=== PATIENT | female | born 2000 | race Caucasian/White ===

== ENCOUNTER 2020-05-10 14:23 | Emergency (ER) | payer OTHER, SELFPAY ==
[2020-05-10 14:37] VITALS: BP 146/80; PULSE 95; RESP 16; TEMP 37; O2SAT 100
--- NOTE | 2020-05-10 14:56 | ED.GENADULT ---
HPI - General Adult General Chief complaint: Back Pain/Injury Stated complaint: back pain Source: patient Mode of arrival: ambulatory Limitations: no limitations History of Present Illness HPI narrative: Patient presents for evaluation of low back pain with radiation of the right lower extremity. She indicates she is history of L5 disc herniation and underwent surgery in 2015 for this. At that time she was experiencing radicular pain into the left lower extremity. She had mild relief postoperatively and saw a chiropractor for ongoing management of her pain. In January of this year she started to develop pain in the contralateral lower extremity. She cannot identify any precipitating cause or injury. She states pain is constant but varies in severity, currently 7 out of 10 but reaching 9 out of 10 at times. No descriptive quality of the pain. Pain radiates through the right buttock and down the posterior aspect of the right lower extremity. She has numbness in the right foot which is new for her. She denies any saddle anesthesia, bladder/bowel incontinence. She has recently completed 2 prednisone tapers. She indicates she has attempted to call her primary care provider multiple times, upwards of 3 times last week to discuss her pain. She states that her PCP ordered an MRI but this was declined by her insurance company. Her insurance provider indicated that her primary care provider could perform a peer to peer discussion in an attempt to have her MRI approved. For some reason, she has been told by office staff at her primary care provider's office that the nurse practitioner will return her call. However she continues to receive calls from community support associate as opposed to the actual provider. Patient is obviously frustrated with ongoing pain and lack of follow-up. She states she had an x-ray approximately 3 weeks ago that showed no acute process in the lumbar spinal region. She denies any urinary symptoms. LMP 3 weeks ago. Related Data Home Medications Medication Instructions Recorded Confirmed desog-e.estradiol/e.estradiol 1 tablet PO DAILY 05/10/20 05/10/20 [Jyotsna (28)] Allergies Allergy/AdvReac Type Severity Reaction Status Date / Time No Known Allergies Allergy Verified 05/10/20 14:43 Review of Systems Review of Systems: Narrative: CONSTITUTIONAL: Denies fever, chills, or sweats. EYES: Denies visual changes, redness, or discharge. ENT: Denies rhinorrhea, congestion, sore throat, or otalgia. CARDIOVASCULAR: Denies chest pain, palpitations, or edema. RESPIRATORY: Denies cough or dyspnea. GASTROINTESTINAL: Denies abdominal pain, nausea, vomiting, or diarrhea. GENITOURINARY: Denies dysuria or hematuria. SKIN: Denies rash or itching. MUSCULOSKELETAL: Denies joint pain. Reports low back pain with radiation into the right lower extremity NEUROLOGIC: Denies headache,dizziness, or weakness. Reports numbness in the right foot PSYCHIATRIC: Denies anxiety or depression. PMFSH Past Medical History Medical History (Updated 05/10/20 @ 15:06 by SHERRIE Shell, SUZANNE) Herniation of intervertebral disc between L5 and S1 Surgical History Surgical History History of lumbar surgery Family History Family History (Updated 05/10/20 @ 15:02 by SHERRIE Shell, SUZANNE) Mother Chronic low back pain Father No pertinent past medical history Social History Social History Smoking status: Never smoker Alcohol intake: current Alcohol use details: social Substance use: never Living arrangements: with family Gender identity (if verbalized by the patient): Female Spiritual care concerns: No Exam Narrative: Exam Narrative: GENERAL: Well-appearing, well-nourished. Visibly uncomfortable HEAD: Normocephalic, atraumatic. EYES: PERRLA and EOMI. ENT: Nares clear, no rhinorrhea or epistaxis
[2020-05-10] MEDS: methylPREDNISolone SOD SUCC 125 MG VIAL IM (15:06)
== END 2020-05-10 15:24 | disposition home or self-care (01) ==
PROVIDERS: Emergency Provider Nurse Practitioner; PCP Physician Assistant Medical
DX: M54.16 Radiculopathy, lumbar region (principal)
CPT/HCPCS: 81025; 96372; 99203; G0463; J2930

== ENCOUNTER → 2020-05-17 12:15 | Outpatient (CLI) | payer OTHER, SELFPAY ==
--- NOTE | ~2020-05-17 | MR_ITS ---
EXAMINATION: MR lumbar spine wo con DATE: 05/17/2020 13:09 INDICATION: Low back pain. Right-sided radiculopathy. TECHNIQUE: Magnetic resonance imaging (MRI) of the lumbar spine was performed without intravenous con trast. Sequences included sagittal T2-weighted FSE, sagittal T2-weighted FS FSE, sagittal T1-weighted FSE, and axial T2-weighted FSE. COMPARISON: None FINDINGS: Bone alignment is normal. There is mild chronic anterior wedging of T11-L5 vertebral bodies with Schmorl's nodes at most levels. There is mildly decreased disc height at L5-S1. The distal spin al cord signal intensity is normal. The conus medullaris is at L1. The following disc levels are spec ifically discussed: L1-L2: The disc does not extend beyond the endplate margin. There is no facet joint osteoarthritis. T here is no neural foraminal stenosis. There is no central canal stenosis. L2-L3: The disc does not extend beyond the endplate margin. There is mild bilateral facet joint osteo arthritis. There is no neural foraminal stenosis. There is no central canal stenosis. L3-L4: The disc is mildly bulging. There is mild bilateral facet joint osteoarthritis. There is mild bilateral neural foraminal stenosis. There is mild central canal stenosis. L4-L5: There is a left foraminal protrusion. There is mild bilateral facet joint osteoarthritis. Ther e is mild left neural foraminal stenosis. There is no central canal stenosis. L5-S1: The disc is bulging and has an annular fissure. There is mild bilateral facet joint osteoarthr itis. There is mild bilateral neural foraminal stenosis. There is mild central canal stenosis. IMPRESSION: 1. Mild lumbar spondylosis. Reviewed, dictated and finalized at location A. 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 Mild lumbar spondylosis.
== END ==
PROVIDERS: PCP Physician Assistant Medical; Visit Provider Physician Assistant Medical
DX: M47.27 Other spondylosis with radiculopathy, lumbosacral region (principal); M48.07 Spinal stenosis, lumbosacral region
CPT/HCPCS: 72148

== ENCOUNTER 2023-05-17 13:10 | Emergency (ER) | payer OTHER, SELFPAY ==
[2023-05-17 13:20] VITALS: BP 142/84; PULSE 79; RESP 18; TEMP 36.1; O2SAT 100
--- NOTE | 2023-05-17 13:31 | ED.GENADULT ---
HPI - General Adult General Chief complaint: Upper Respiratory Infection Stated complaint: Cough,Sore Throat,Congestion Source: patient, RN notes reviewed and old records reviewed Mode of arrival: ambulatory Limitations: no limitations History of Present Illness HPI narrative: 23-year-old female presents to [facility] with complaints of cough congestion and sore throat this started Saturday. Patient denies shortness of breath, fever, wheezing. Patient taking DayQuil with no relief. Related Data Allergies Allergy/AdvReac Type Severity Reaction Status Date / Time No Known Allergies Allergy Verified 05/17/23 13:14 Review of Systems Constitutional: Constitutional: Reports no additional constitutional complaints, Denies chills, Denies fatigue and Denies fever(s) Eyes: Eyes: Reports no additional eye complaints ENT: Reports as per HPI, Reports nasal congestion, Reports nasal discharge, Reports sinus pressure and Reports sore throat Cardiovascular: Cardiovascular: Reports no additional cardiovascular complaints Respiratory: Respiratory: Reports chest congestion and Reports cough Neurologic: Reports system reviewed and no additional complaints, except as documented PMF Past Medical History Medical History Enlarged tonsils Herniation of intervertebral disc between L5 and S1 Strep throat URI (upper respiratory infection) Surgical History Surgical History History of lumbar surgery Family History Family History Mother Chronic low back pain Father No pertinent past medical history Other Breast cancer Social History Social History Smoking status: Never smoker Alcohol intake: current Alcohol use details: social Substance use: never Lack of Transportation: No Lack of Food: Never True Current Housing: I Have Housing Concerned About Future Housing: No Difficulty Paying Gas/Electric Bills: No Difficulty Paying for Meds: No Currently Unemployed: No Education: Bachelor's Degree Difficulty w/ Childcare or Family Care: No Living arrangements: with family Gender identity (if verbalized by the patient): Female Spiritual care concerns: No Comments At the time of my signature, I reviewed and agree with the nursing past medical, surgical, social, and family history. There is no relevant family history pertinent to the patient complaint. Exam Const: General: cooperative, healthy appearing, no acute distress and well nourished Nutritional Appearance: well nourished Orientation/consciousness: patient oriented x3 Limitations: no limitations HENMT: Head: normal to inspection and normocephalic Ears: external ears normal, TM's normal bilaterally, mastoids normal and Abnormal EAC present Face/Nose/Sinus: normal facial exam Face and sinus: normal facial exam Mouth: Yes Normal oral and palatal mucosa present, Yes oropharynx normal and Yes moist mucous membranes Throat: posterior oropharynx normal, uvula midline, abnormal tonsil bilateral ( patient states scheduled to have tonsillectomy in 1 month) erythema and hypertrophy and no uvular edema Eyes: General: appearance normal, both eyes and all related structures Sclera: sclerae normal Pupils: Equal, round and reactive pupils present Resp: Effort & Inspection: normal respiratory effort, able to speak in complete sentences, no audible wheezes, no cough, no respiratory distress and no retractions Auscultation: clear to auscultation bilaterally, no crackles, no rales, no rhonchi and no wheezes Cardio: Rate: regular rate Rhythm: regular rhythm Skin: General skin exam: normal color and no rashes or lesions noted Neuro: General: patient oriented x3 Cranial nerves: Yes Equal, round and reactive pupils present Psych: Appeara
== END 2023-05-17 13:43 | disposition home or self-care (01) ==
PROVIDERS: Emergency Provider Registered Nurse; PCP Physician Assistant Medical
DX: J03.90 Acute tonsillitis, unspecified (principal); J06.9 Acute upper respiratory infection, unspecified
CPT/HCPCS: 87081; 87880; 99213; G0463

== ENCOUNTER 2023-06-21 00:44 | Day surgery (SDC) | payer OTHER, SELFPAY ==
[2023-06-18 08:19] VITALS: BMI 35.6
--- NOTE | 2023-06-18 08:27 | PC.NURSE ---
Report to the Outpatient Waiting Room, entrance under the green pavilion located off [facility], at time __0800_ on date _06/21/22__. Planned Procedure Time: _1000_. Time changes happen often and if your time is changed the preop area will call you the afternoon before. - You and your visitor will be asked to self-screen and do not enter if you have any COVID symptoms. - A mask is optional within the hospital at this time. Patients may have clear liquids (water, carbonated beverages, clear teas, apple juice) until 3 hours prior to surgery with a maximum of 20 ounces. - No food from midnight until time of surgery - Infants may have breast milk until 4 hours before surgery, infant formula 6 hours prior to surgery. - Children will be allowed to drink immediately following surgery. If applicable, please bring a bottle or sippy cup to assist with drinking. Juice, water, soda, and popsicles are readily available. For infants on formula, please bring formula the day of surgery. Pacifiers are allowed. Take the following medications with a SIP of water the morning of surgery: INHALER / ZOFRAN IF NEEDED DO NOT STOP ANY OF YOUR OTHER PRESCRIPTION MEDICATIONS PRIOR TO SURGERY ?EXCEPT THE FOLLOWING Medications to discontinue per physician NONE Date to take last dose Please no make-up, nail comoran, hairspray, perfume, deodorant, or body powder the day of surgery. No jewelry (including any body piercings) or valuables the day of surgery, leave them at home. Please take a shower or bath the night before, or the morning of, surgery with an antibacterial soap. Wear comfortable, loose fitting clothing. Children are encouraged to wear pajamas. - Jewelry must be removed prior to entering the operating room. Rings and piercings that are not removed may be cut off. - The hospital will not accept responsibility for valuables. - Please leave all valuables, including medications, at home the day of surgery. If you are going home after surgery, a licensed motor coach driver must drive you home. - NO public transportation without another adult if you receive anesthesia. - We recommend that an adult stay with you for 24 hours following discharge. - We also recommend that you do not drive, make important decision, drink alcoholic beverages, or take any drugs that were not prescribed by your health care provider for at least 24 hours after your discharge time. For Pediatric surgeries, we recommend two adults accompany the child home. Follow any additional instructions given to you from your surgeon. If you or anyone in your household have experienced Covid symptoms in the past week, please notify your surgeon or the nurse liaison at the phone number below for possible testing. Telephone instructions given to _PATIENT_and asked if any additional questions and then verbalized understanding. Patient advised to call surgeon office or pre surgery nurse liaison [phone] if any additional questions.
--- NOTE | 2023-06-20 08:26 | PM.IMHP ---
H&P: HPI History of Present Illness Date/Time: 06/20/23 08:26 Chief Complaint: recurrent tonsillitis chronic tonsillitis dysphagia tonsil stones halitosis snoring adenoid hypertrophy Review of Systems Review of Systems: All systems reviewed & are unremarkable except as noted in HPI and below PMFSH Past Medical History Medical History (Updated 06/20/23 @ 08:27 by Italo Botello MD) Enlarged tonsils Herniation of intervertebral disc between L5 and S1 Murmur Strep throat URI (upper respiratory infection) Surgical History Surgical History History of lumbar surgery Family History Family History Mother Chronic low back pain Father No pertinent past medical history Other Breast cancer Social History Social History Smoking status: Never smoker Alcohol intake: current Drinks per week: 1 Alcohol use details: social Substance use: never Lack of Transportation: No Lack of Food: Never True Current Housing: I Have Housing Concerned About Future Housing: No Difficulty Paying Gas/Electric Bills: No Difficulty Paying for Meds: No Currently Unemployed: No Education: Bachelor's Degree Difficulty w/ Childcare or Family Care: No Living arrangements: with family Gender identity (if verbalized by the patient): Female Spiritual care concerns: No Meds Home Medications and Allergies Home Medications Medication Instructions Recorded Confirmed Type ondansetron 4 mg disintegrating 4 mg PO Q8H PRN nausea and 05/17/23 06/19/23 Rx tablet vomiting #20 tabs albuterol sulfate 90 mcg/actuation 1 - 2 inh inhalation Q4-6H PRN 05/21/23 06/19/23 Rx aerosol inhaler shortness of breath or wheezing #8.5 grams desogestrel-e.estradiol 0.15 1 tablet PO HS 06/18/23 06/19/23 History mg-0.02 mg(21)/e.estrad 0.01 mg(5) tablet (Kariva (28)) clindamycin HCl 300 mg capsule 300 mg PO Q8H #21 caps 06/19/23 06/19/23 Rx Allergies Allergy/AdvReac Type Severity Reaction Status Date / Time No Known Allergies Allergy Verified 06/18/23 08:17 Exam Narrative: large tonsils large adenoids chronic appearing tonsils tonsil stones Assessment and Plan Assessment and plan (1) Dysphagia: Code(s): R13.10 - Dysphagia, unspecified Status: Acute Assessment and Plan: plan or excision mucocele risks discussed including bleeding infection recurrence change in cosmesis scar formation need for time off work need for time off school recurrence of mucocele.? Damage to any structure of the clavicle by myself damage to any structure during induction and maintenance of anesthesia including vocal cord paralysis. (2) Tonsillar hypertrophy: Code(s): J35.1 - Hypertrophy of tonsils Status: Acute (3) Recurrent tonsillitis: Code(s): J03.91 - Acute recurrent tonsillitis, unspecified Status: Acute (4) Strep throat: Code(s): J02.0 - Streptococcal pharyngitis Status: Acute (5) Enlarged tonsils: Code(s): J35.1 - Hypertrophy of tonsils Status: Acute (6) Adenoid hypertrophy: Code(s): J35.2 - Hypertrophy of adenoids Status: Acute (7) Snoring: Code(s): R06.83 - Snoring Status: Acute
[2023-06-21] VITALS (13 sets, daily range): BP systolic 131–164; BP diastolic 79–105; PULSE 61–104; RESP 14–20; TEMP 36.1–36.7; O2SAT 97–100
--- NOTE | 2023-06-21 07:18 | WPDHPUPDATE1 ---
History and Physical Update Update Date/Time: 06/21/23 07:18 History and Physical has been reviewed, including an updated exam of the patient. There are NO changes in the patient's condition. Risks, benefits, and alternatives have been discussed and questions answered. Patient agrees to proceed with procedure.
--- NOTE | 2023-06-21 07:34 | WPDHPUPDATE1 ---
History and Physical Update Update Date/Time: 06/21/23 07:34 Procedure will be tonsillectomy and adenoidectomy.
[2023-06-21] MEDS: ACETAMINOPHEN 500 MG TABLET 1000 MG PO (08:33)
[2023-06-21] MEDS: LACTATED RINGERS 1,000 ML 30 ML IV CONT ×3 (08:40→13:42)
--- NOTE | 2023-06-21 09:19 | WPDANESEPPF ---
Anes - Initial Pre Proc Eval Procedure: Operation Date: 06/21/23 10:00 Proposed Procedures p Tonsillectomy And Adenoidectomy - Italo Botello MD Date/Time: 06/21/23 09:19 Surgeon: Italo Botello MD Pre Op Diagnosis: adenoid hypertrophy,chronic tonsillitis Patient Data Age: 23 Gender: F Height: 1.68 m Weight: 102.8 kg Last Vital Signs Temp 36.7 C 06/21/23 08:47 Pulse 83 06/21/23 08:47 Resp 20 06/21/23 08:47 BP 164/103 H 06/21/23 08:47 Pulse Ox 100 06/21/23 08:47 O2 Del Method Room Air 06/21/23 08:47 Allergies Allergy/AdvReac Type Severity Reaction Status Date / Time No Known Allergies Allergy Verified 06/21/23 08:21 Home Medications Medication Instructions Recorded Confirmed Type ondansetron 4 mg disintegrating 4 mg PO Q8H PRN nausea and 05/17/23 06/21/23 Rx tablet vomiting #20 tabs albuterol sulfate 90 mcg/actuation 1 - 2 inh inhalation Q4-6H PRN 05/21/23 06/21/23 Rx aerosol inhaler shortness of breath or wheezing #8.5 grams desogestrel-e.estradiol 0.15 1 tablet PO HS 06/18/23 06/21/23 History mg-0.02 mg(21)/e.estrad 0.01 mg(5) tablet (Kariva (28)) clindamycin HCl 300 mg capsule 300 mg PO Q8H #21 caps 06/19/23 06/19/23 Rx Patient hx anesthesia problems: post op nausea/vomiting Family hx anesthesia problems: none Results Review: All pre-operative results and documents have been reviewed as part of the pre-operative evaluation. [facility] Past Medical History Medical History (Updated 06/20/23 @ 08:27 by Italo Botello MD) Enlarged tonsils Herniation of intervertebral disc between L5 and S1 Murmur Strep throat URI (upper respiratory infection) Surgical History Surgical History History of lumbar surgery Family History Family History Mother Chronic low back pain Father No pertinent past medical history Other Breast cancer Social History Social History Smoking status: Never smoker Alcohol intake: current Drinks per week: 1 Alcohol use details: social Substance use: never Lack of Transportation: No Lack of Food: Never True Current Housing: I Have Housing Concerned About Future Housing: No Difficulty Paying Gas/Electric Bills: No Difficulty Paying for Meds: No Currently Unemployed: No Education: Bachelor's Degree Difficulty w/ Childcare or Family Care: No Living arrangements: with family Gender identity (if verbalized by the patient): Female Spiritual care concerns: No Anes - Eval Final PreProcedure Day of Procedure 06/21/23 09:19 Patient weight: obese Heart: regular rate and rhythm Lungs: clear to auscultation Airway: Mallampati scale class II Neurological: alert and oriented Last oral intake: >/= 8 hours ASA classification: II Emergent: no Anesthetic plan: proceed Anesthesia type and monitoring: general ETT and standard monitoring Results Review: All pre-operative results and documents have been reviewed as part of the pre-operative evaluation. Informed Consent: The patient's anesthetic plan and its attendant risks and benefits were discussed with the patient/family/POA. Questions were solicited and answers provided to the satisfaction of the patient/family/POA.
[2023-06-21] MEDS: SCOPOLAMINE 1 MG PATCH 1 PATCH TRANSDERM (11:32)
[2023-06-21] MEDS: ONDANSETRON INJ 4 MG/2 ML VIAL IV PUSH (11:32)
[2023-06-21] MEDS: diphenhydrAMINE HCl INJ 50 MG/ML VIAL 25 MG IV PUSH (11:41)
--- NOTE | 2023-06-21 11:54 | W.PM.PROC2 ---
Procedure Note - Detailed Date of Procedure 06/21/23 Pre-op Diagnosis adenoid hypertrophy,chronic tonsillitis Post-op Diagnosis Same Procedure Performed tonsillectomy Surgeon Italo Botello MD Anesthesia General Indications see above Findings scarred in purulent tonsils Description of Procedure patient identified consent verified preop. Patient are. Time-out performed. General anesthesia induced endotracheal tube secured. Patient prepped draped position procedure confirmed 2nd time-out performed. McIvor mouth gag inserted tonsils removed bilaterally extracapsular plane using Bovie electrocautery setting of 8. Any bleeders controlled Bovie suction electrocautery setting of 10 bipolar setting of 8. In-between tonsils McIvor mouth gag lowered to allow blood flow return to the tongue. Afterwards red rubber catheter was inserted transnasally soft palate suspended anteriorly adenoids non-existent. Scant bleeding from the right side from the rubber catheter insertion. No active bleeding. McIvor mouth gag was lowered for 30 seconds reopened reveal no further bleeding. This was a by palpable bilateral procedure. Blood loss 2 cc. No complications. I performed all dictated portions of the procedure. Estimated Blood Loss 2 Drains No Packing No Pathology Yes Complications No immediate complications Condition Stable Disposition PACU [facility] Billing Surgery - Charge Forward: Surgery Billing
[2023-06-21] MEDS: fentaNYL CITRATE INJ (*CRX) 100 MCG/2 ML VIAL 25 MCG IV PUSH ×2 (11:55→12:10)
[2023-06-21] MEDS: oxyCODONE (*CRX) 5 MG/5 ML ORAL SOLN IR PO (13:41)
== END 2023-06-21 14:54 | disposition home or self-care (01) ==
PROVIDERS: PCP Physician Assistant Medical; Visit Provider Otolaryngology
PROC: (CPT 42826; principal; 2023-06-21 10:00)
DX: R13.10 Dysphagia, unspecified (principal); J35.03 Chronic tonsillitis and adenoiditis; J03.90 Acute tonsillitis, unspecified; R06.83 Snoring
CPT/HCPCS: 42826; 88302; A9270; J1100; J1200; J2250; J2405; J2704; J3010; J7120

== ENCOUNTER 2024-11-12 17:54 | Emergency (ER) | payer OTHER, SELFPAY ==
--- OUTSIDE RECORDS SUMMARY | 2024-11-12 17:55 | XMS_ITS | Clinical Summary ---
Author Organization [facility] Address [address] [place] [address] Care Team Providers Care Internal Auditor Name Role Phone Brigid Banegas Primary Care Provider [phone] Allergies No known active allergies Medications Kariva, 28, 0.15-0.02 mgx21 /0.01 mg x 5 per tablet TAKE 1 TABLET BY MOUTH EVERY DAY. PLEASE CALL OFFICE FOR APPOINTMENT 0 Active Active Problems Problem Noted Date Diagnosed Date Encounter for post surgical wound check 07/04/19 21 Class 1 obesity in adult 06/14/2020 Chronic pain 06/14/2020 Overview (06/14/2020): Right leg pain Lumbar disc herniation with radiculopathy 2019 Overview (05/27/2020): Added automatically from request for surgery [id number] Surgical History Surgery Date Site/Laterality Comments BACK SURGERY 06/17/2015 - 06/16/2016 L5-S1 microdisectomy Medical History Medical History Date Comments PONV (postoperative nausea a nd vomiting) Resolved withing 1-2 hours Motion sickness Lumbar disc herniation with radiculopathy 05/27/2020 Added automatically from req uest for surgery [id number] Family History Medical History Relation Name Comments Diabetes Other Family history of diabetes mellitus - Relation: Grandparent (Added by TW Conv) Heart attack Paternal Grandfather Valve Replacement Paternal Grandfather Anesthesia problems Neg Hx Relation Name Status Comments Other Paternal Grandfather Social History Tobacco Use Types Packs/Day Years Used Date Smoking Tobacco: Never Smokeless Tobacco: Never Alcohol Use Standard Drinks/Week Comments Yes 0 (1 standard drink = 0.6 oz pur e alcohol) Comments No Sex and Gender Information Value Date Recorded Sex Assigned at Not on file 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 Gender Identity Not on file Sexual Orientation Not on file Obstetrics History Last Filed Vital Signs Vital Sign Reading Time Taken Comments Blood Pressure 167/101 03/11/2022 7:52 PM CDT Pulse 76 03/11/2022 7:52 PM CDT Temperature 37.1 C (98.8 F) 03/11/2022 7:52 PM CDT Respiratory Rate 16 03/11/2022 7:52 PM CDT Oxygen Saturation 98% 03/11/2022 7:52 PM CDT Inhaled Oxygen Concentration - - Weight 90.4 kg (199 lb 4.7 oz) 03/11/2022 7:52 P M CDT Height 167.6 cm (5' 6) 03/11/2022 7:52 PM CDT Body Mass Index 32.17 03/11/2022 7:52 PM CDT Plan of Treatment Health Maintenance Due Date Last Done Comments Cervical Cancer Screening 1998 Depression Screening 1998 Varicella Vaccines (1 of 2 - 13+ 2-dose series) 2011 HPV Vaccines (1 - 3-dose series) 2013 Regular Well Visit/Exam 18-64 2016 DTaP/Tdap/Td Vaccine (2 - Td or Tdap) 01/14/2020 01/13/2010 Influenza Vaccine (Season Ended) 2025 Hepatitis B Screening Completed 01/19/1999 , 1998, 1998 Hepatitis C Screening Completed 02/06/2016 Pneumococcal vaccine <65 Aged Out No longer eligible based on patient's age to complete this topic Procedures Procedure Name Priority Date/Time Associated Diagnosis Comments SERUM HEPATITIS PANEL Routine 02/06/2016 4:15 AM CDT from Last 3 Months or Most Recently Relevant to Health Maintenance Results * Serum Hepatitis panel (02/06/2016 4:15 AM CDT) HCV ab Negative NEG CDR HISTOR ICAL RESULTS Comment: Interpretive Data Positive results should be confirmed by a molecular method. If positive, a second separately collected sample should be submitted for Hepatitis C Virus (HCV) RNA Detection and Quantitation by Real-Time Reverse Receiving Barn Custodian-PCR (RT-PCR). Current interpretive data was last revised on 2016. HBV core ab, IgM Negative NEG CDR HISTORICAL RESULTS Comment: Interpretive Data If test is reported as Equivocal, new sample should be drawn for testing. Current interpretive data was last revised on 2008. HAV ab, IgM Negative NEG CDR HIST ORICAL RESULTS Comment: Interpretive Data If test is reported as Equivocal, new sample should be drawn in two weeks for testing. Current interpretive data was last revised on 2008. HBV surface ag Negative NEG CDR H ISTORICAL RESULTS Serum 02/06/2016 4:15 AM CDT Narrative CDR HISTORICAL RESULTS - 02/07/2016 5:52 AM CDT Expiration Date: LAB Frequency Standing Order? No Client/Account Bill? No Client Account Number and Description: us Historical Provider LAB BLOOD ORDERABLES Smitha fisher Result Performing Organization Address City/State/[facility] Co de Phone Number CDR HISTORICAL RESULTS from Last 3 Months or Most Recently Relevant to Health Maintenance Insurance [facility] CHOICE PLUS [facility] CHOICE PLUS Care Teams Internal Auditor Relationship Specialty Start Date End Date Brigid Banegas PA [address] [place] [id number] PCP - General 06/04/17
--- OUTSIDE RECORDS SUMMARY | 2024-11-12 17:55 | XMS_ITS | Referral Summary ---
Author Organization [facility] Address [address] [place] [address] Care Team Providers Care Railway Signal Electrician Name Role Phone Brigid Banegas Primary Care Provider [phone] Allergies No known active allergies Medications Kariva, [...] (05/27/2020): Added automatically from request for surgery [id number] Social History Tobacco Use Types Packs/Day Years Used Date Smoking Tobacco: Never Smokeless Tobacco: Never Alcohol Use Standard Drinks/Week Comments Yes 0 (1 standard drink = 0.6 oz pur e alcohol) Comments No Sex and Gender Information Value Date Recorded Sex Assigned at Not on file Legal Sex 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 Current interpretive data was last revised [...] Provider LAB BLOOD ORDERABLES Smitha fisher Result CDR HISTORICAL RESULTS from Last 3 Months or Most Recently Relevant to Health Maintenance Insurance [facility] CHOICE PLUS [facility] CHOICE PLUS [facility] CHOICE PLUS Member Subscriber Plan / Payer (Ef fective 2021-Present) Name:Luh Blackwell Relation to Subscriber:Child Name:MARCELASCOOBY Date of :1964 Address: [address] [place] [address] Payer ID:[id number] (NAIC) Type:[facility] HMO/PPO Address: [place] [phone] Care Teams Railway Signal Electrician Relationship Specialty Start Date End Date Brigid Banegas PA [address] [place] [id number] PCP - General 06/04/17
--- OUTSIDE RECORDS SUMMARY | 2024-11-12 17:55 | XMS_ITS | Clinical Summary ---
Author Organization [facility] Address [address] [place] [address] Care Team Providers Care It Help Desk Manager Name Role Phone Unavailable Primary Care Provider Unavailabl e Source Comments [facility],non-owned Affiliates and Associated Physician Practices is amultiple site organization consisting of ambulatory clinics and hospital sitesin [place], [place], [place] and [place]. This disclosure is being madepursuant to the Care Everywhere program and may not contain all information available regarding this patient. Last updated 18.[facility] Allergies No known active allergies Medications * Be aware that medications may not be up to date on this document. Alwaysverify current medications with the patient. No known medications Active Problems Problem Noted Date Diagnosed Date Elevated blood pressure read ing without diagnosis of hypertension 07/17/2014 BMI (body mass index), pediatric, 95-99% for age 0701/11/2011 Immunizations Immunization Administration Dates Next Due DPT 01/11/2003, 0,1998, 9,1998 HEP B VACCINE, PED/ADOL 01/19/1999,1998, HIB BOOSTER 11/28/1999, 9,1998, 9 MENINGOCOCCAL ACWY (MCV4P) VAC IM 07/16/2014, MMR 01/11/2003,04/21/1999 POLIO IPV 01/11/2003,1998,1998 PPD 01/11/2003,04/21/1999 TDAP (7yrs+) 01/13/2010 Family History Medical History Relation Name Comments Hypercholesterolemia Maternal Grandmother Hypercholesterolemia Mother Relation Name Status Comments Maternal Grandmother Mother Social History Tobacco Use Types Packs/Day Years Used Date Smoking Tobacco: Never Smokeless Tobacco: Never Alcohol Use Standard Drinks/Week Comments No 0 (1 standard drink = 0.6 oz pur e alcohol) Comments No Sex and Gender Information Value Date Recorded Sex Assigned at Not on file Legal Sex Female 6:56 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 Gender Identity Not on file Sexual Orientation Not on file Last Filed Vital Signs Vital Sign Reading Time Taken Comments Blood Pressure 134/70 07/16/2014 4:32 PM CERTIFIED MASTER LOCKSMITH manual; after vaccine given Pulse 72 07/16/2014 4:12 PM CERTIFIED MASTER LOCKSMITH Temperature 37 C (98.6 F) 07/16/2014 4:12 PM CERTIFIED MASTER LOCKSMITH Respiratory Rate 18 01/11/2011 2:58 PM CDT Oxygen Saturation - - Inhaled Oxygen Concentration - - Weight 79.5 kg (175 lb 3.2 oz) 07/16/2014 4:12 PM CERTIFIED MASTER LOCKSMITH Height 165.7 cm (5' 5.25) 07/16/2014 4 :12 PM CERTIFIED MASTER LOCKSMITH Body Mass Index 28.93 07/16/2014 4:12 PM CERTIFIED MASTER LOCKSMITH Plan of Treatment Health Maintenance Due Date Last Done Comments PAP SMEAR 1998 HIV SCREENING 2013 HPV VACCINE (1 - 3-dose series) 2013 HEPATITIS C SCREENING 04/11/2016 DTAP/TDAP/TD VACCINES (7 - Td or Tdap) 01/14/2020 01/13/2010, 01/11/2003, 11/28/1999, Additional history exists COVID-19 VACCINE ( season) 2024 DEPRESSION SCREENING 06/17/2024 INFLUENZA VACCINE (Season Ended) 2025 ZOSTER VACCINE (1 of 2) 2048 HEPATITIS B VACCINE Completed 01/19/1999, 1998, 1998 HIB VACCINE Completed 11/28/1999, 12/1998, 1998, Additional history exists MENINGOCOCCAL GROUPS A/C/Y/W VACCINE Completed 07/16/2014, 01/13/2010 MENINGOCOCCAL (Group B) VACCINE SHARED DECISION-MAKING Aged Out No longer eligible based on patient's age to complete this topic PNEUMOCOCCAL VACCINE Aged Out No long er eligible based on patient's age to complete this topic Goals Goal Patient Goal Type Associated Problems Recent Progress Patient-Stated? Author Exercise 3X per week (30 min per time) Exercise On track( 015 4:14 PM CERTIFIED MASTER LOCKSMITH) No Sujata Fam, REYNALDO Note: Caring for Your Overweight Child Get Moving: It is recommended that children and teens get physical activity for at least 1 hour per day on most (or better yet, all) days of the week. That may sound like a lot, especially if your child is not getting any physical activity now. But physical activity means more than exercise. It can mean playing games in the backyard, or washing the car. It can mean picking up leaves, or walking the dog. Add the healthy habit of physical activity to your family s schedule. When children take off weight through dieting alone, 80 percent of the loss is from fatty tissue and 20 percent is from muscle. Adding weight-resistance training to an exercise routine preserves the muscle tissue. Virtually every ounce dropped comes from fat. Once an adolescent meets her goal, regular exercise is essential for maintaining the desired weight. Where can I go for more information? [place] [employer] ( ) www.aap.org HealthyChildren.org www.healthychildren.org U.S. Department of Health and Human Services www.hhs.gov Website and free downloadable debra for smartphones: http://www.MyFeelBack/ [facility] Lifestyle: Use safety retraint in car Lifestyle On track( 015 4:14 PM CERTIFIED MASTER LOCKSMITH) No Sujata Fam RN Insurance [facility] SELF PAY NO INSURANCE Member Subscriber Plan / Payer (Ef fective for All Dates) Name:Luh Medrano Member ID:Not on file Relation to Subscriber:Not on file Name:LUH MEDRANO Subscriber ID:Not on file (Home) Address: [address] [place] [address] Payer ID:Not on file Group ID:Not on file Type:Self Pay Address: [place], [place] [facility] SELF PAY NO INSURANCE Member Subscriber Plan / Payer (Ef fective for All Dates) Name:Luh Medrano Member ID:Not on file Relation to Subscriber:Not on file Name:LUH MEDRANO Subscriber ID:Not on file (Home) Address: [address] [place] [address] Payer ID:Not on file Group ID:Not on file Type:Self Pay Address: [place], [place]
[2024-11-12 18:01] VITALS: BP 149/95; PULSE 69; RESP 16; TEMP 36.8; O2SAT 100
[2024-11-12] MEDS: methylPREDNISolone SOD SUCC 125 MG VIAL IM (18:35)
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
== END 2024-11-12 18:41 | disposition home or self-care (01) ==
PROVIDERS: PCP Physician Assistant Medical
DX: L23.7 Allergic contact dermatitis due to plants, except food (principal)
CPT/HCPCS: 96372; 99213; G0463; J2919